=== PATIENT | female | born 1985 | race African-American/Black ===

== ENCOUNTER → 2017-05-27 | Outpatient (CLI) | payer OTHER ==
[~2017-05-27] MED LIST: PRENTAB26 PO
--- NOTE | 2017-05-27 15:30 | MAMMOGRAPHY REPORT ---
UNILATERAL LEFT DIGITAL DIAGNOSTIC MAMMOGRAM TOMOSYNTHESIS WITH CAD AND TARGETED LEFT ULTRASOUND: CLINICAL HISTORY: The patient reports she had an outside ultrasound in 2015 which showed a finding th at was called benign. The patient also reports nonfocal left chest/breast pain for approximately one year which she attributes to anxiety. She denies any palpable left breast lumps. She stopped breas t-feeding in July. TECHNIQUE: Breast tomosynthesis in addition to standard 2D mammography was performed. Current study was also evaluated with a Computer Aided Detection (CAD) system. Left CC and MLO to 2D and tomosynth esis images were obtained. COMPARISON: Prior outside ultrasound from [facility] dated 11/11/2015. The report from the ultrasound e xam reports "dense, lobular tissue at the 12:00 left breast " which was considered benign. BREAST COMPOSITION: There are scattered areas of fibroglandular density in the left breast. FINDINGS: There are no suspicious masses, calcifications, or areas of architectural distortion noted within the left breast mammographically. Targeted ultrasound was performed of the area of the previously seen dense tissue on the prior outsid e ultrasound exam in the left 12:00 breast. Targeted ultrasound of the left 12:00 breast demonstrate s sonographically normal tissue without evidence of a mass or other suspicious sonographic abnormalit y. IMPRESSION: ACR BI-RADS CATEGORY 1: NEGATIVE, TARGETED ULTRASOUND ACR BI-RADS CATEGORY 1: NEGATIVE No suspicious mammographic or sonographically abnormality in the left 12 o'clock breast, in the regio n of the previously seen normal dense tissue on the prior outside ultrasound exam. There is no mammo graphic or targeted sonographic evidence of malignancy. Recommend clinical follow-up for left breast /chest pain, and recommend routine bilateral screening mammograms starting at age 40 unless otherwise clinically indicated. The patient has been verbally notified of the results. Approximately 10% of breast cancers are not detected with mammography. A negative mammographic report should not delay biopsy if a clinically suggestive mass is present. Corazon Summers M.D. /:05/27/2017 11:39:41 Biology Department Chair: Mayra SEGAL)(Laura), [facility] letter sent: Normal 1/2 BI-RADS Code: ACR BI-RADS Category 1: Negative Ultrasound BI-RADS: ACR BI-RADS Category 1: Negative
== END | disposition home or self-care (01) ==
LOC: C.MAMM 10:55
PROVIDERS: ATTEND Family Medicine
DX: R92.8 Other abnormal and inconclusive findings on diagnostic imaging of breast (principal)

== ENCOUNTER → 2017-05-27 | Outpatient (CLI) | payer OTHER ==
--- NOTE | 2017-05-28 16:37 | HOLTER SCAN ---
The patient was monitored for a total of 24 hours. Normal sinus rhythm was seen throughout with a maximum heart rate of 144 beats per minute in a sinus tachycardia, and a minimum heart rate 62 beats per minute in a sinus bradycardia. Average heart rate is 91 beats per minute. There was 1 isolated PVC without ventricular couplets or runs. There were no atrial ectopic beats. There were no runs of a supraventricular tachycardia. There were no pauses or inappropriate bradycardias. There were no diary entries. CONCLUSION: 1. Normal sinus rhythm throughout. 2. Rare PVCs. 3. No atrial ectopy. 4. No diary entries.
== END | disposition home or self-care (01) ==
LOC: C.CPL 13:05
PROVIDERS: ATTEND Family Medicine
DX: R00.2 Palpitations (principal)

== ENCOUNTER → 2017-05-27 | Outpatient (CLI) | payer OTHER ==
[2017-05-27 12:28] LABS: COMPLETE YES; EOS % 0.9 %; HEMATOCRIT 36.9 % (37-47); IG% 0.2 %; LYMPH ABS # 1.48 K/uL (1.2-3.4); MEAN CELL VOLUME 84.1 fL (80-100); MEAN CORPUSCULAR HEMOGLOBIN 27.1 pg (25-34); MEAN CORPUSCULAR HGB CONC 32.2 g/dl (32-36); MEAN PLATELET VOLUME 9.6 fL (7.4-10.4); MONO % 7.6 %; NEUT % 63.3 %; PLATELET COUNT 230 K/uL (130-400); RED BLOOD COUNT 4.39 M/uL (4.2-5.4); WHITE BLOOD COUNT 5.29 K/uL (4.8-10.8)
[2017-05-27 14:27] LABS: BLOOD UREA NITROGEN 11 mg/dl (7-18); CALCIUM 8.6 mg/dl (8.5-10.1); CARBON DIOXIDE 28 mmol/L (21-32); CHLORIDE 103 mmol/L (98-107); CREATININE 0.67 mg/dl (0.60-1.20); GLUCOSE 86 mg/dl (70-99); POTASSIUM 3.5 mmol/L (3.5-5.1); SODIUM 138 mmol/L (136-145)
== END | disposition home or self-care (01) ==
LOC: C.LABPVFM 08:42
PROVIDERS: ATTEND Family Medicine
DX: F41.9 Anxiety disorder, unspecified (principal); R00.2 Palpitations; N63.0 Unspecified lump in unspecified breast

== ENCOUNTER → 2017-10-20 | Outpatient (CLI) | payer OTHER ==
[~2017-10-20] MED LIST changes: +AMOX500T PO; +CLIN150C15 PO; +IBUP-1451 PO; +ONDA4TAB10 SL; +PRED10TA PO; +SACC250C3 PO
== END | disposition home or self-care (01) ==
LOC: C.LABPVFM 17:42
PROVIDERS: ATTEND Nurse Practitioner
DX: J02.9 Acute pharyngitis, unspecified (principal)

== ENCOUNTER 2017-10-21 16:23 | Emergency (ER) | payer OTHER ==
[~2017-10-21] VITALS: Ht 162.6 cm; Wt 63.6 kg
[~2017-10-21 16:23] MED LIST changes: -AMOX500T PO; -CLIN150C15 PO; -IBUP-1451 PO; -ONDA4TAB10 SL; -PRED10TA PO; -SACC250C3 PO
[2017-10-21 16:28] VITALS: TEMP 36.6; Ht 162.6 cm; Wt 63.6 kg
[2017-10-21] MEDS ORDERED: IBUPROFEN 800 MG TAB PO STA (16:49)
--- NOTE | 2017-10-21 16:51 | EMERGENCY ROOM VISIT NOTE ---
History Report prepared by Nini: David Roy Under the Supervision of: Dr. Dk Cardoso M.D. First contact with patient: 16:32 Chief Complaint: ALLERGIC REACTION Stated Complaint: SWOLLEN TONGUE, TINGLING IN RT ARM/HAND, SHAKEY History of Present Illness The patient is a 32 year old female who presents to the Emergency Room with complaints of a constant, swollen tongue beginning this morning. The patient states she developed a sorethroat Wednesday and was evaluated by her PCP yesterday. She reports she was tested for strep, which was negative, and given Augmentin and prednisone. She states her cultures are still pending. The patient notes she did not feel comfortable taking the Augmentin and prednisone for the required dosage, so she did not take the prednisone. She states she took two doses of the Augmentin, one last night and one this morning. The patient reports she called her PCP today and asked to switch her antibiotic because the back of her tongue felt swollen. She notes her PCP said she would prefer the patient be evaluated in the ED to ensure it was not an allergic reaction. The patient states she has mild itching in the back of her throat and pain with swallowing. She reports she is also experiencing nausea, and it feels different than the nausea she has been experiencing with her other symptoms. The patient notes her ear aches and sorethroat have resolved. She denies trouble swallowing, vomiting, rashes, the chance of , and shortness of breath. The patient also denies a history of stomach ulcers. Source of History: patient Onset: this morning Position: tongue Quality: other (swelling) Timing: constant Associated Symptoms: + sorethroat (resolved), + nausea, No SOB, No vomiting , No rash Note: Associated symptoms: resolved ear pain, pain with swallowing, mild itching to the back of the throat Denies: trouble swallowing Review of Systems See HPI for pertinent positives and negatives. A total of ten systems were reviewed and were otherwise negative. Past Medical & Surgical Medical Problems: (1) Blood in urine (2) Dysuria during in second trimester (3) Family History Diabetes mellitus Hypertension Social History Smoking Status: Never Smoker Drug Use: none Marital Status: Housing Status: lives with family Current/Historical Medications Scheduled Amoxicillin & Pot Clavulanate (Augmentin 500MG), 1 TAB PO BID Clindamycin Hcl (Clindamycin Hcl), 450 MG PO QID Multivit/Min/Iron/Fol Ac/Pren ( Vitamin), 1 TAB PO DAILY Ondasetron Odt (Zofran Odt), 4 MG SL Q6H Prednisone (Prednisone), 10 MG PO TID Saccharomyces Boulardii (Florastor), 1 CAP PO BID Scheduled PRN Ibuprofen Tab (Motrin), 800 MG PO Q8H PRN for Pain Allergies Coded Allergies: Peanut (Verified Allergy, Mild, RASH, 10/21/17) SWELLING OF LIPS AND RASH ON LIPS FROM ROASTED PEANUTS Physical Exam Vital Signs Date Time Temp Pulse Resp B/P (MAP) Pulse Ox O2 Delivery O2 Flow Rate FiO2 10/21/17 17:34 79 14 127/79 97 10/21/17 17:22 100 Room Air 10/21/17 17:16 77 14 135/87 100 Room Air 10/21/17 16:28 36.6 89 18 131/91 97 Room Air Physical Exam GENERAL: Awake, alert, well-appearing, in no distress HENT: Normocephalic, atraumatic. Post oropharynx has moderate injection and edema that appears symmetrical. No tongue elevation, stridor, or trismus. EYES: Normal conjunctiva. Sclera non-icteric. NECK: Supple. No nuchal rigidity. FROM. No JVD. No pain with tracheal manipulation. RESPIRATORY: Clear to auscultation. CARDIAC: Regular rate, normal rhythm. Extremities warm and well perfused. Pulses equal. ABDOMEN: Soft, non-distended. No tenderness to palpation. No rebound or guarding. No masses. RECTAL: Deferred. MUSCULOSKELETAL: Chest examination reveals no tenderness. The back is symmetrical on inspection without obvious abnormality. There is no CVA tenderness to palpation. No joint edema. LOWER EXTREMITIES: Calves are equal size bilaterally and non-tender. No edema. No discoloration. NEURO: Normal sensorium. No sensory or motor deficits noted. SKIN: No rash or jaundice noted. Medical Decision & Procedures Medications Administered Medications (Trade) Dose Ordered Sig/Sena Route Start Time Stop Time Status Last Admin Dose Admin Ibuprofen (Motrin Tab) 800 mg NOW STAT PO 10/21/17 16:49 10/21/17 16:51 DC 10/21/17 17:13 800 MG Dexamethasone Sodium Phosphate (Dexamethasone Inj Pf) 10 mg NOW ONCE PO 10/21/17 17:00 10/21/17 17:01 DC 10/21/17 17:11 10 MG ED Course 1633: The patient was evaluated in room A04B. A complete history and physical exam was performed. I discussed results and discharge instructions: she verbalized understanding and agreement. The patient is ready for discharge when she receives her medication. Medical Decision I reviewed the patient's past medical history, medications, and the nursing notes as described above. Differential diagnosis: Etiologies such as viral syndrome, tonsillitis, streptococcal pharyngitis, mononucleosis, peritonsillar abscess, retropharyngeal abscess, otitis, pneumonia , influenza, as well as others were entertained. The patient is a 32-year-old woman who presents to emergency department with concern for tongue swelling in the setting of being treated for a strep pharyngitis on Augmentin per hpi. Of note, the patient was prescribed Augmentin yesterday as well as a prednisone taper, however the patient has not taken the prednisone because she reports that she does not like to take a lot of medications. Today she took her Augmentin and feels like her throat has swelled more and is concerned that this could be an allergic reaction. On arrival the patient is relatively well-appearing in no acute distress, afebrile stable vital signs. On exam the patient has mild injection and edema in the posterior pharynx that is symmetrical. No tongue elevation or trismus. No stridor or pain with tracheal manipulation. Patient does not any evidence to suggest allergic reaction. Lungs are clear to auscultation. Skin is unremarkable. I discussed with the patient that her symptoms are most likely related to her pharyngitis and she would benefit from steroids for their anti- inflammatory effect. Thus, the patient was given dexamethasone as well as ibuprofen with subsequent improvement and was agreeable for outpatient follow- up and will continue Augmentin. Findings and plan for follow-up reviewed with patient. Patient agreeable and d/c'd per discharge instructions. Medication Reconcilliation Current Medication List: was personally reviewed by me Blood Pressure Screening Patient's blood pressure: Normal blood pressure Blood pressure disposition: Did not require urgent referral Impression Primary Impression: Pharyngitis Scribe Attestation The scribe's documentation has been prepared under my direction and personally reviewed by me in its entirety. I confirm that the note above accurately reflects all work, treatment, procedures, and medical decision making performed by me. Departure Information Dispostion Home / Self-Care Prescriptions Ondasetron Odt (ZOFRAN ODT) 4 Mg Tab 4 MG SL Q6H for Nausea, #10 TAB Prov: Dk Cardoso M.D. 10/21/17 Ibuprofen Tab (MOTRIN) 800 Mg Tab 800 MG PO Q8H Y for Pain for 7 Days, #21 TAB Prov: Dk Cardoso M.D. 10/21/17 Referrals Jenise Ibarra M.D. (PCP) Forms HOME CARE DOCUMENTATION FORM, IMPORTANT VISIT INFORMATION Patient Instructions ED Strep Pharyngitis Sourav, My [facility] Additional Instructions Please follow up with your primary care physician in the next 1-3 days for re- evaluation. Your symptoms are likely due your pharyngitis, which may possibly be due to a strep infection. Otherwise, your exam did not show signs of an emergent condition at this time. Continue your Augmentin as prescribed. You were given a dose of steroids today and if your symptoms do not improve in 24 hours you should begin the Prednisone taper as prescribed by your doctor. Acetaminophen or ibuprofen for pain and fevers. Zofran as needed for nausea. Drink plenty of fluids to ensure hydration. Return to the emergency department for worsening symptoms as described in the accompanying instructions.
[2017-10-21] MEDS ORDERED: IBUP-1451 PO (16:53)
[2017-10-21] MEDS ORDERED: ONDA4TAB10 SL (16:53)
[2017-10-21] MEDS ORDERED: DEXAMETHASONE 1 MG TAB PO ONE (17:00)
[2017-10-21] MEDS ORDERED: DEXAMETHASONE **PF** INJ 10 MG/ML VIAL PO ONE (17:00)
[2017-10-21 17:34] VITALS: BP 127/79; PULSE 79; O2SAT 97
[2017-10-21] MEDS ORDERED: AMOX500T PO (22:05)
[2017-10-21] MEDS ORDERED: PRED10TA PO (22:05)
[2017-10-21] MEDS ORDERED: SACC250C3 PO (22:43)
[2017-10-21] MEDS ORDERED: CLIN150C15 PO (22:43)
== END 2017-10-21 17:30 | disposition home or self-care (01) ==
LOC: C.EDB 16:24 → C.EDA 17:30
DX: J02.9 Acute pharyngitis, unspecified (principal); Z79.899 Other long term (current) drug therapy; Z91.010 Allergy to peanuts; Z83.3 Family history of diabetes mellitus; Z82.49 Family history of ischemic heart disease and other diseases of the circulatory system

== ENCOUNTER 2017-10-21 20:50 | Emergency (ER) | payer OTHER ==
[~2017-10-21] VITALS: Ht 162.6 cm; Wt 64.6 kg
[~2017-10-21 20:50] MED LIST changes: +IBUP-1451 PO; +ONDA4TAB10 SL
[2017-10-21 20:56] VITALS: TEMP 36.6; Ht 162.6 cm; Wt 64.6 kg
--- NOTE | 2017-10-21 21:31 | EMERGENCY ROOM VISIT NOTE ---
History Report prepared by Nini: David Roy Under the Supervision of: Dr. Dk Cardoso M.D. First contact with patient: 21:09 Chief Complaint: SHORTNESS OF BREATH Stated Complaint: SOB History of Present Illness The patient is a 32 year old female who presents to the Emergency Room with complaints of resolved, mild, shortness of breath that occurred 1.5 hours ago. The patient states she was in the ED earlier today and was given a steroid for similar symptoms. She reports she had swelling in the back of her mouth that almost resolved with the steroid. The patient notes she developed itchiness and swelling in the back of her throat in addition to her shortness of breath. She states it feels like something is sitting on the back of her tongue. The patient reports it does feel better than when she was driving here. She notes she has a recent history of getting anxious. The patient states she has spoke with a outdoor emergency care technician and it did not seem to help her. She denies itchiness anywhere else and a rash. The patient reports her itchiness is still present from her previous visit, and her tongue swelling has improved with the steroid. Source of History: patient Onset: 1.5 hours ago Symptom Intensity: mild Quality: other (SOB) Timing: resolved Associated Symptoms: No rash Note: Associated symptoms: itchiness in the back of her mouth Review of Systems See HPI for pertinent positives and negatives. A total of ten systems were reviewed and were otherwise negative. Past Medical & Surgical Medical Problems: (1) Blood in urine (2) Dysuria during in second trimester (3) Family History Diabetes mellitus Hypertension Social History Smoking Status: Never Smoker Drug Use: none Marital Status: Housing Status: lives with family Current/Historical Medications Scheduled Amoxicillin & Pot Clavulanate (Augmentin 500MG), 1 TAB PO BID Clindamycin Hcl (Clindamycin Hcl), 450 MG PO QID Multivit/Min/Iron/Fol Ac/Pren ( Vitamin), 1 TAB PO DAILY Ondasetron Odt (Zofran Odt), 4 MG SL Q6H Prednisone (Prednisone), 10 MG PO TID Saccharomyces Boulardii (Florastor), 1 CAP PO BID Scheduled PRN Ibuprofen Tab (Motrin), 800 MG PO Q8H PRN for Pain Allergies Coded Allergies: Peanut (Verified Allergy, Mild, RASH, 10/21/17) SWELLING OF LIPS AND RASH ON LIPS FROM ROASTED PEANUTS Physical Exam Vital Signs Date Time Temp Pulse Resp B/P (MAP) Pulse Ox O2 Delivery O2 Flow Rate FiO2 10/21/17 23:10 69 16 112/73 100 10/21/17 21:38 Room Air 10/21/17 21:20 84 10/21/17 21:20 Room Air 10/21/17 20:56 36.6 95 20 124/85 99 Room Air Physical Exam GENERAL: Awake, alert, well-appearing, in no distress HENT: Normocephalic, atraumatic. Post oropharynx has moderate injection and edema that appears symmetrical. No tongue elevation, stridor, or trismus. EYES: Normal conjunctiva. Sclera non-icteric. NECK: Supple. No nuchal rigidity. FROM. No JVD. RESPIRATORY: Clear to auscultation. CARDIAC: Regular rate, normal rhythm. Extremities warm and well perfused. Pulses equal. ABDOMEN: Soft, non-distended. No tenderness to palpation. No rebound or guarding. No masses. RECTAL: Deferred. MUSCULOSKELETAL: Chest examination reveals no tenderness. The back is symmetrical on inspection without obvious abnormality. There is no CVA tenderness to palpation. No joint edema. LOWER EXTREMITIES: Calves are equal size bilaterally and non-tender. No edema. No discoloration. NEURO: Normal sensorium. No sensory or motor deficits noted. SKIN: No rash or jaundice noted. Medical Decision & Procedures Medications Administered Medications (Trade) Dose Ordered Sig/Sena Route Start Time Stop Time Status Last Admin Dose Admin Clindamycin HCl (Cleocin Cap) 450 mg ONE STAT PO 10/21/17 21:33 10/21/17 21:38 DC 10/21/17 21:55 450 MG Acetaminophen (Tylenol Tab) 1,000 mg NOW STAT PO 10/21/17 21:33 10/21/17 21:38 DC 10/21/17 21:56 1,000 MG Dexamethasone Sodium Phosphate (Dexamethasone Inj Pf) 10 mg NOW ONCE PO 10/21/17 21:45 10/21/17 21:46 DC 10/21/17 21:56 10 MG Clindamycin HCl (Cleocin Cap) 450 mg ONE STAT PO 10/21/17 22:44 10/21/17 22:48 DC 10/21/17 23:09 450 MG ED Course 2122: The patient was evaluated in room C08. A complete history and physical exam was performed. 2138: I reevaluated the patient. She is feeling better. 2253: I reevaluated the patient. Discussed results and discharge instructions: she verbalized understanding and agreement. The patient is ready for discharge. Medical Decision I reviewed the patient's past medical history, medications, and the nursing notes as described above. Differential diagnosis: Etiologies such as viral syndrome, tonsillitis, streptococcal pharyngitis, mononucleosis, peritonsillar abscess, retropharyngeal abscess, otitis, pneumonia , influenza, as well as others were entertained. The patient is a 32-year-old woman who presents to emergency department for the second time today with concern for tongue swelling in the setting of being treated for a strep pharyngitis on Augmentin per hpi. When seen earlier it was determined that the patient's symptoms were most likely related to her pharyngitis, the setting of not taking her prescribed steroid. Of note, the patient reports that she felt much improved after her initial visit earlier today after receiving dexamethasone and ibuprofen. However, reports that when she took her evening dose of Augmentin she felt like her tongue swelling returned and briefly felt short of breath with difficulty swallowing. However, she reports by the time she arrived here that this has entirely resolved without any new intervention. Of note the patient does report that she has recently had an increase in underlying anxiety and admits that this may be contributing to her interpretation of symptoms today. On arrival the patient is well-appearing in no acute distress, afebrile stable vital signs. I saw the patient earlier today and her exam is unchanged with mild injection and edema in the posterior pharynx that is symmetrical. No tongue elevation or trismus. No stridor or pain with tracheal manipulation. Thus, unlikely to be [employer] or RPA at this time. There continues to be no evidence on exam to suggest allergic reaction. Lungs are clear to auscultation. Skin is unremarkable. I again discussed with the patient that her symptoms are most likely related to her pharyngitis. However she requested that we change her antibiotic. I agreed we will do this however I explained that I am reluctant to definitively say that the patient has an allergy to amoxicillin at this time, given I believe her symptoms are again related to her pharyngitis. Given the patient's report of a recurrence of her earlier symptoms, will treat with second dose of dexamethasone particularly given that the patient is unlikely to begin her prescribed prednisone taper tomorrow and this will give her additional anti- inflammatory effect as her antibiotics continue to work. Thus, the patient was given dexamethasone and clindamycin continued improvement during her ED observation. She was agreeable with plan to continue with outpatient follow-up. Findings and plan for follow-up reviewed with patient. Patient agreeable and d/c 'd per discharge instructions. Medication Reconcilliation Current Medication List: was personally reviewed by me Blood Pressure Screening Patient's blood pressure: Normal blood pressure Blood pressure disposition: Did not require urgent referral Impression Primary Impression: Pharyngitis Scribe Attestation The scribe's documentation has been prepared under my direction and personally reviewed by me in its entirety. I confirm that the note above accurately reflects all work, treatment, procedures, and medical decision making performed by me. Departure Information Dispostion Home / Self-Care Prescriptions Saccharomyces Boulardii (Florastor) 250 Mg Cap 1 CAP PO BID for 10 Days, #20 CAP Prov: Dk Cardoso M.D. 10/21/17 Clindamycin Hcl (CLINDAMYCIN HCL) 150 Mg Cap 450 MG PO QID for 10 Days, #120 CAP Prov: Dk Cardoso M.D. 10/21/17 Referrals Jenise Ibarra M.D. (PCP) Forms HOME CARE DOCUMENTATION FORM, IMPORTANT VISIT INFORMATION Patient Instructions ED Strep Pharyngitis Sourav, My [facility] [address] Additional Instructions Please follow up with your primary care physician in the next 1-3 days for re- evaluation. Your symptoms are likely due your pharyngitis, which may possibly be due to a strep infection. Otherwise, your exam did not show signs of an emergent condition at this time. Discontinue her current antibiotic and begin clindamycin as prescribed. You were given a second dose of steroids today and if your symptoms do not improve in 24 hours you should begin the Prednisone taper as prescribed by your doctor. Acetaminophen or ibuprofen for pain and fevers. Zofran as needed for nausea. Drink plenty of fluids to ensure hydration. Return to the emergency department for worsening symptoms as described in the accompanying instructions.
[2017-10-21] MEDS ORDERED: ACETAMINOPHEN 500 MG TAB PO STA (21:33)
[2017-10-21] MEDS ORDERED: CLINDAMYCIN HCL 150 MG CAP PO STA ×2 (21:33→22:44)
[2017-10-21] MEDS ORDERED: DEXAMETHASONE **PF** INJ 10 MG/ML VIAL PO ONE (21:45)
[2017-10-21] MEDS ORDERED: PRED10TA PO (22:05)
[2017-10-21] MEDS ORDERED: AMOX500T PO (22:05)
[2017-10-21] MEDS ORDERED: SACC250C3 PO (22:43)
[2017-10-21] MEDS ORDERED: CLIN150C15 PO (22:43)
[2017-10-21] MEDS ORDERED: EMPTY 8 DRAM VIAL ONE (23:03)
[2017-10-21 23:10] VITALS: BP 112/73; PULSE 69; O2SAT 100
== END 2017-10-21 23:08 | disposition home or self-care (01) ==
LOC: C.EDB 20:50 → C.EDC 23:08
DX: J02.9 Acute pharyngitis, unspecified (principal); Z91.010 Allergy to peanuts

== ENCOUNTER → 2018-01-26 | Outpatient (CLI) | payer OTHER ==
[~2018-01-26] MED LIST changes: +AMOX500T PO; +CLIN150C15 PO; -IBUP-1451 PO; +PRED10TA PO
--- NOTE | 2018-01-26 14:06 | DIAGNOSTIC IMAGING REPORT ---
KUB HISTORY: Acute constipation with bloody stool and acute generalized abdominal pain K59.00 [id number] COMPARISON: None. FINDINGS: The bowel gas pattern is non-obstructive. Moderate volume of formed colonic stool throughout the colon extends from the cecum through the descending colon. No significant stool volume of the sigmoid or rectum. There is no organomegaly. No renal calculi. No ureteral calculi. No pneumoperitoneum or pneumatosis. No fracture. IMPRESSION: 1. Nonobstructive bowel gas pattern. 2. Suggested constipation. Electronically signed by: Scooter Stoner M.D. 01/26/2018 2:04 PM Dictated Date/Time: 01/26/2018 2:03 PM
== END | disposition home or self-care (01) ==
LOC: C.RAD1850 13:43
PROVIDERS: ATTEND Physician Assistant
DX: K59.00 Constipation, unspecified (principal)

== ENCOUNTER → 2018-03-02 | Outpatient (CLI) | payer OTHER ==
[~2018-03-02] MED LIST changes: +ONDA4TAB46 PO; +SULF800T23 PO
[2018-03-02 12:17] LABS: BASO % 0.2 %; BASO ABS # 0.01 K/uL (0-0.2); EOS % 0.6 %; EOS ABS # 0.03 K/uL (0-0.5); HEMATOCRIT 38.1 % (37-47); HEMOGLOBIN 12.3 g/dL (12.0-16.0); LYMPH % 35.8 %; LYMPH ABS # 1.74 K/uL (1.2-3.4); MEAN CELL VOLUME 83.7 fL (80-100); MEAN CORPUSCULAR HGB CONC 32.3 g/dl (32-36); MEAN PLATELET VOLUME 9.4 fL (7.4-10.4); MONO % 6.4 %; MONO ABS # 0.31 K/uL (0.11-0.59); NEUT ABS # 2.77 K/uL (1.4-6.5); PLATELET COUNT 224 K/uL (130-400); RED CELL DISTRIBUTION WIDTH CV 13.2 % (11.5-14.5); RED CELL DISTRIBUTION WIDTH SD 39.5 fL (36.4-46.3); WHITE BLOOD COUNT 4.86 K/uL (4.8-10.8)
== END | disposition home or self-care (01) ==
LOC: C.LAB1850 09:38
PROVIDERS: ATTEND Nurse Practitioner Adult Health
DX: R30.0 Dysuria (principal); D64.9 Anemia, unspecified; F41.9 Anxiety disorder, unspecified; J02.9 Acute pharyngitis, unspecified; J03.00 Acute streptococcal tonsillitis, unspecified

== ENCOUNTER → 2018-03-05 | Outpatient (CLI) | payer OTHER | END | disposition home or self-care (01) | LOC: C.LAB1850 09:00 | PROVIDERS: ATTEND Nurse Practitioner Adult Health | DX: R30.0 Dysuria (principal); R31.29 Other microscopic hematuria ==

== ENCOUNTER 2018-03-06 20:16 | Emergency (ER) | payer OTHER ==
[~2018-03-06] VITALS: Ht 162.6 cm; Wt 60.3 kg
[~2018-03-06 20:16] MED LIST changes: -ONDA4TAB46 PO; -SULF800T23 PO
[2018-03-06 20:19] VITALS: TEMP 36.9; Ht 162.6 cm; Wt 60.3 kg
[2018-03-06] MEDS ORDERED: SODIUM CHLORIDE 0.9% 1000ML 1,000 ML IV STA (20:42)
[2018-03-06 21:14] LABS: BASO % 0.1 %; BASO ABS # 0.01 K/uL (0-0.2); EOS % 0.7 %; EOS ABS # 0.05 K/uL (0-0.5); HEMATOCRIT 36.5 % (37-47); HEMOGLOBIN 12.2 g/dL (12.0-16.0); IG# 0.02 K/uL (0.00-0.02); LYMPH % 8.9 %; LYMPH ABS # 0.64 K/uL (1.2-3.4); MEAN CELL VOLUME 81.3 fL (80-100); MEAN CORPUSCULAR HEMOGLOBIN 27.2 pg (25-34); MEAN CORPUSCULAR HGB CONC 33.4 g/dl (32-36); MEAN PLATELET VOLUME 9.5 fL (7.4-10.4); MONO % 4.9 %; MONO ABS # 0.35 K/uL (0.11-0.59); NEUT % 85.1 %; NEUT ABS # 6.12 K/uL (1.4-6.5); PLATELET COUNT 219 K/uL (130-400); RED CELL DISTRIBUTION WIDTH CV 12.6 % (11.5-14.5); WHITE BLOOD COUNT 7.19 K/uL (4.8-10.8)
--- NOTE | 2018-03-06 21:18 | EMERGENCY ROOM VISIT NOTE ---
History Report prepared by Nnii: Tuyet Reese Under the Supervision of: Dr. Da Galarza M.D. First contact with patient: 20:29 Chief Complaint: NAUSEA Stated Complaint: NAUSEA History of Present Illness The patient is a 32 year old female who presents to the Emergency Room with complaints of worsening nausea starting this morning. The patient states that she was diagnosed by [facility] 4 days ago with a UTI and started on Bactrim. She states that she has been fine with the antibiotic and felt fine after taking it last night,. She states that this morning she started becoming nauseous and believes that it is due to not eating enough food with the antibiotic. She reports that since then it has gotten worse. The patient reports that she called her PCP who called in a prescription of Zofran. She notes that she took one, but it didn't seem to help much. She states that she has not eaten or drank much all day so she is concerned about taking another round of the Bactrim tonight. The patient complains of diarrhea and vomiting 3 times. She notes that she feels slightly better than before she came in. She notes that she has some vaginal discharge, but presumed that it was from the UTI. The patient denies hematemesis, dark black vomit, hematochezia, hematuria, melena, vaginal bleeding, concern for STDs, and the chance of . She notes that her only abdominal surgery was a . Source of History: patient Onset: this morning Position: abdomen Quality: other (nausea) Timing: worsening Modifying Factors (Relieving): anti-emetics (Zofran) Associated Symptoms: + vomiting, + diarrhea, No melena, No hematochezia, No urinary symptoms Note: The patient complains of vaginal discharge. The patient denies hematemesis, dark black vomit, vaginal bleeding, concern of STDs, and the chance of . Review of Systems See HPI for pertinent positives and negatives. A total of ten systems were reviewed and were otherwise negative. Past Medical & Surgical Medical Problems: (1) Blood in urine (2) Dysuria during in second trimester (3) Surgical Problems: (1) Hx of section Family History Diabetes mellitus Hypertension Social History Smoking Status: Never Smoker Drug Use: none Marital Status: Housing Status: lives with family Current/Historical Medications Scheduled Multivit/Min/Iron/Fol Ac/Pren ( Vitamin), 1 TAB PO DAILY Sulfa/Trimethoprim (Bactrim Ds 800MG/160MG), 1 TAB PO BID Scheduled PRN Ondansetron Hcl (Zofran), 4 MG PO EVERY 8 HOURS PRN for Nausea Allergies Coded Allergies: Amoxicillin (Unverified Allergy, Intermediate, "TONGUE SWELLS", 03/06/18) Clavulanic Acid (Unverified Allergy, Intermediate, "TONGUE SWELLS", ) Peanut (Verified Allergy, Mild, RASH, 03/06/18) SWELLING OF LIPS AND RASH ON LIPS FROM ROASTED PEANUTS Physical Exam Vital Signs Date Time Temp Pulse Resp B/P (MAP) Pulse Ox O2 Delivery O2 Flow Rate FiO2 03/06/18 22:19 70 18 105/75 99 Room Air 03/06/18 20:19 36.9 83 18 103/70 99 Room Air Physical Exam Physical Exam GENERAL: She is oriented to person, place, and time. She appears well- developed and well-nourished. She does not appear distressed. HENT: Exam performed. Head: Normocephalic and atraumatic. Right Ear: External ear normal. No mastoid tenderness. Left Ear: External ear normal. No mastoid tenderness. Mouth/Throat: The oropharynx is clear and moist. No trismus in the jaw. No dental abscesses or uvula swelling. No oropharyngeal exudate or tonsillar abscesses. EYES: Conjunctivae and EOM are normal. Pupils are equal, round, and reactive to light. Right eye exhibits no discharge. Left eye exhibits no discharge. No scleral icterus. NECK: Normal range of motion. Neck supple. No JVD present. No spinous process tenderness present. No carotid bruit present. No rigidity. No tracheal deviation and normal range of motion present. No Brudzinski's sign and no Kernig 's sign noted. CV: Normal rate, regular rhythm, normal heart sounds and intact distal pulses. There is no peripheral edema. Palpable radial pulses bue. PULM/CHEST: Effort normal and breath sounds normal. No respiratory distress. No stridor. She has no wheezes. She has no rales. Chest Wall: She exhibits no tenderness. ABD: The abdomen is soft. Bowel sounds are normal. She has no distension. No mass is present. There is pain on palpation of the suprapubic region. There is no rebound, no guarding, no Mills's sign and no tenderness at McBurney's point. Rovsig negative MUSC/SKEL: Normal range of motion. There is no peripheral edema, tenderness or deformity. LYMPH: No cervical adenopathy. NEURO: She is alert and oriented to person, place, and time. She has normal strength. No cranial nerve deficit or sensory deficit. Coordination and gait normal. GCS eye subscore is 4. GCS verbal subscore is 5. GCS motor subscore is 6. Cerebellar tests wnl. SKIN: Skin is warm and dry. She is not diaphoretic. PSYCH: She has a normal mood and affect. Behavior is normal. Judgment and thought content normal. Medical Decision & Procedures Laboratory Results 03/06/18 21:05 Red Blood Count 4.49, Mean Corpuscular Volume 81.3, Mean Corpuscular Hemoglobin 27.2, Mean Corpuscular Hemoglobin Concent 33.4, Mean Platelet Volume 9.5, Neutrophils (%) (Auto) 85.1, Lymphocytes (%) (Auto) 8.9, Monocytes (%) (Auto) 4.9, Eosinophils (%) (Auto) 0.7, Basophils (%) (Auto) 0.1, Neutrophils # (Auto) 6.12, Lymphocytes # (Auto) 0.64, Monocytes # (Auto) 0.35, Eosinophils # (Auto) 0.05, Basophils # (Auto) 0.01 03/06/18 21:05 Test 03/06/18 20:54 03/06/18 21:05 Urine Color YELLOW Urine Appearance CLEAR (CLEAR) Urine pH 7.0 (4.5-7.5) Urine Specific [place] 1.001 (1.000-1.030) Urine Protein NEG (NEG) Urine Glucose (UA) NEG (NEG) Urine Ketones NEG (NEG) Urine Occult Blood NEG (NEG) Urine Nitrite NEG (NEG) Urine Bilirubin NEG (NEG) Urine Urobilinogen NEG (NEG) Urine Leukocyte Esterase TRACE (NEG) Urine WBC (Auto) /hpf (0-5) Urine RBC (Auto) /hpf (0-4) Urine Hyaline Casts (Auto) /lpf (0-5) Urine Epithelial Cells (Auto) /lpf (0-5) Urine Bacteria (Auto) (NEG) Urine RBC 0-4 /hpf (0-4) Urine WBC 5-10 /hpf (0-5) Urine Epithelial Cells 5-10 /lpf (0-5) Urine Bacteria NEG (NEG) Urine Test NEG (NEG) White Blood Count 7.19 K/uL (4.8-10.8) Red Blood Count 4.49 M/uL (4.2-5.4) Hemoglobin 12.2 g/dL (12.0-16.0) Hematocrit 36.5 % (37-47) Mean Corpuscular Volume 81.3 fL (80-100) Mean Corpuscular Hemoglobin 27.2 pg (25-34) Mean Corpuscular Hemoglobin Concent 33.4 g/dl (32-36) Platelet Count 219 K/uL (130-400) Mean Platelet Volume 9.5 fL (7.4-10.4) Neutrophils (%) (Auto) 85.1 % Lymphocytes (%) (Auto) 8.9 % Monocytes (%) (Auto) 4.9 % Eosinophils (%) (Auto) 0.7 % Basophils (%) (Auto) 0.1 % Neutrophils # (Auto) 6.12 K/uL (1.4-6.5) Lymphocytes # (Auto) 0.64 K/uL (1.2-3.4) Monocytes # (Auto) 0.35 K/uL (0.11-0.59) Eosinophils # (Auto) 0.05 K/uL (0-0.5) Basophils # (Auto) 0.01 K/uL (0-0.2) RDW Standard Deviation 38.0 fL (36.4-46.3) RDW Coefficient of Variation 12.6 % (11.5-14.5) Immature Granulocyte % (Auto) 0.3 % Immature Granulocyte # (Auto) 0.02 K/uL (0.00-0.02) Anion Gap 9.0 mmol/L (3-11) Est Creatinine Clear Calc Drug Dose 78.3 ml/min Estimated GFR () 98.7 Estimated GFR (Non- 85.2 BUN/Creatinine Ratio 4.9 (10-20) Lactic Acid Level 0.8 mmol/L (0.4-2.0) Calcium Level 9.1 mg/dl (8.5-10.1) Laboratory results reviewed by Medications Administered Medications (Trade) Dose Ordered Sig/Sena Route Start Time Stop Time Status Last Admin Dose Admin Sodium Chloride 1,000 ml @ 999 mls/hr Q1H1M STAT IV 03/06/18 20:42 03/06/18 21:42 DC 03/06/18 21:03 999 MLS/HR ED Course 2037: The patient was evaluated in room C7. A complete history and physical exam was performed. 2041: Ordered NSS 1000 ml @ 999 mls/hr IV. 2152: I reevaluated the patient and her vitals were stable. Repeat abdominal exam shows no pain on palpation of the abdomen. Labs within normal limits. She will be discharged and follow up with her PCP. I instructed her to continue taking her Bactrim as instructed. The patient states that she had had Bactrim in the past and has not ever had an adverse reaction in the past. She states that she believes this adverse reaction is from taking it on an empty stomach.DISCHARGE - Plan of care discussed with patient and questions answered. The patient was given both verbal and printed discharge instructions. The patient verbalized understanding and ability to comply. The patient is to seek outpatient follow up as noted in the discharge instructions. The patient verbalized understanding and ability to comply. The patient is discharged in stable condition. The patient was instructed to return for worsening symptoms. Medical Decision Repeat abdominal exam shows no pain on palpation of the abdomen. Labs within normal limits. She will be discharged and follow up with her PCP. I instructed her to continue taking her Bactrim as instructed. The patient states that she had had Bactrim in the past and has not ever had an adverse reaction in the past. She states that she believes this adverse reaction is from taking it on an empty stomach.DISCHARGE - Plan of care discussed with patient and questions answered. The patient was given both verbal and printed discharge instructions. The patient verbalized understanding and ability to comply. The patient is to seek outpatient follow up as noted in the discharge instructions. The patient verbalized understanding and ability to comply. The patient is discharged in stable condition. The patient was instructed to return for worsening symptoms. Medication Reconcilliation Current Medication List: was personally reviewed by me Blood Pressure Screening Patient's blood pressure: Normal blood pressure Blood pressure disposition: Did not require urgent referral Impression Primary Impression: Nausea & vomiting Additional Impression: UTI (urinary tract infection) Scribe Attestation The scribe's documentation has been prepared under my direction and personally reviewed by me in its entirety. I confirm that the note above accurately reflects all work, treatment, procedures, and medical decision making performed by me. Departure Information Dispostion Home / Self-Care Referrals Lucy Rivera CRNP (PCP) Forms HOME CARE DOCUMENTATION FORM, IMPORTANT VISIT INFORMATION Patient Instructions My [facility] Additional Instructions Follow-up in 1 7 days with your PCP. Return to emergency department for develop fever greater 100.4, worsening abdominal pain, vaginal bleeding, blood in your vomit, blood in your stools. Problem Qualifiers Primary Impression: Nausea & vomiting Vomiting type: unspecified Vomiting Intractability: unspecified Qualified Codes: R11.2 - Nausea with vomiting, unspecified Additional Impression: UTI (urinary tract infection) Urinary tract infection type: acute cystitis Hematuria presence: without hematuria Qualified Codes: N30.00 - Acute cystitis without hematuria
[2018-03-06 21:31] LABS: CALCIUM 9.1 mg/dl (8.5-10.1); CREATININE 0.9 mg/dl (0.60-1.20); POTASSIUM 3.6 mmol/L (3.5-5.1)
[2018-03-06] MEDS ORDERED: SULF800T23 PO (21:32)
[2018-03-06] MEDS ORDERED: ONDA4TAB46 PO (21:33)
[2018-03-06 22:19] VITALS: BP 105/75; PULSE 70; O2SAT 99
== END 2018-03-06 22:21 | disposition home or self-care (01) ==
LOC: C.EDB 20:17 → C.EDC 22:21
DX: R11.2 Nausea with vomiting, unspecified (principal); N30.00 Acute cystitis without hematuria; Z88.1 Allergy status to other antibiotic agents; Z88.8 Allergy status to other drugs, medicaments and biological substances; Z91.010 Allergy to peanuts

== ENCOUNTER 2019-01-04 12:24 | Inpatient (IN) ==
[2019-01-04] MEDS ORDERED: LACTATED RINGER'S 1,000 ML IV PRN (12:34)
[2019-01-04] MEDS ORDERED: OXYTOCIN 30 UNITS/500 ML BAG IV PRN ×2 (12:34→13:18)
[2019-01-04 12:58] LABS: Hematocrit (blood only) 42.3 % (37-47); Hemoglobin 14.3 g/dL (12.0-16.0); Mean Corpuscular Volume 81.3 fL (80-100); Mean Platelet Volume 9.7 fL (7.4-10.4); Platelet Count 164 K/uL (130-400); White Blood Count 12.11 K/uL (4.8-10.8)
[2019-01-04] MEDS ORDERED: LIDOCAINE/EPINEPHRINE 1% 20 ML VIAL ONE (12:58)
[2019-01-04 13:00] LABS: Mean Corpuscular Hgb Conc 33.8 g/dL (32-36)
[2019-01-04] MEDS ORDERED: METHYLERGONOVINE MALEATE 0.2 MG/ML AMP ONE (13:08)
[2019-01-04] MEDS ORDERED: BISACODYL 10 MG SUPP PR PRN (13:18)
[2019-01-04] MEDS ORDERED: IBUPROFEN 600 MG TAB PO PRN (13:18)
[2019-01-04] MEDS ORDERED: HYDROCORTISONE ACETATE 25 MG SUPP PR PRN (13:18)
[2019-01-04] MEDS ORDERED: ACETAMINOPHEN W/CODEINE #3 1 TAB PO PRN (13:18)
[2019-01-04] MEDS ORDERED: SUPERCREAM 0.870% 15 GM JAR EXT PRN (13:18)
[2019-01-04] MEDS ORDERED: BENZOCAINE 20% AER SPR 82.5 GM CAN EXT PRN (13:18)
[2019-01-04] MEDS ORDERED: OXYCODONE/ACETAMINOPHEN 5mg/325mg TAB PO PRN (13:18)
[2019-01-04] MEDS ORDERED: DIPHTHERIA/TETANUS/PERTUSSIS 0.5 ML SYR/VIAL IM ONE (13:18)
[2019-01-04] MEDS ORDERED: METHYLERGONOVINE MALEATE 0.2 MG/ML AMP IM ONE (13:18)
[2019-01-04] MEDS: ACETAMINOPHEN 325 MG TAB PO PRN ×2 (16:28→23:31)
[2019-01-04] MEDS: DOCUSATE SODIUM 100 MG CAP PO SCH (20:44)
--- NOTE | 2019-01-05 00:47 | Delivery Summary ---
DATE OF OPERATION: 01/04/2019 DELIVERY NOTE Mrs. Stepehnson is a 5, para 3, 1 spontaneous AB. She had first time and then has had 2 previous successful VBACs. Estimated due date 01/09/2019, blood type is B positive. I got a call from [employer] [facility]now [employer] office saying that patient had a nonreactive NST and a low biophysical profile, sent her over to [facility]. Once she arrived on maternity, she was 5 cm dilated, membranes had ruptured spontaneously and there was thick meconium. Came in immediately to the hospital. By the time I got here, she was . crowned, they suctioned the mouth and the nose thoroughly, then delivered the shoulders without difficulty, clamped the cord, cut it, and then handed the off to the nurses for suctioning and resuscitation. Cord blood was taken. With IV Pitocin running, the placenta was removed intact. It had meconium staining on the cord and the membranes. Inspection of the perineum revealed a first-degree laceration. The area was infiltrated local with epinephrine. Then I used 2-0 Vicryl to approximate the vaginal mucosa out and to beyond the hymenal ring, a deep suture of 2-0 Vicryl to approximate the bulbocavernosus muscle, separate deep suture to approximate the perineal body, and a running subcuticular suture of 2-0 Vicryl to approximate the perineal skin edges. Following this, I expelled all the clots from the uterus. Uterus was well contracted. I did give IM Methergine 0.2 mg, did a vag exam including rectovaginal examination. There were no stitches through the rectum, no sponges in the vagina. [facility]
[2019-01-05 06:40] LABS: Hematocrit (blood only) 38.7 % (37-47); Hemoglobin 13.2 g/dL (12.0-16.0); Mean Corpuscular Hgb Conc 34.1 g/dL (32-36); Mean Corpuscular Volume 82.2 fL (80-100); Mean Platelet Volume 9.9 fL (7.4-10.4); Platelet Count 172 K/uL (130-400); RDW Coefficient of Variation 17.2 % (11.5-14.5); RDW Standard Deviation 51.7 fL (36.4-46.3); Red Blood Count 4.71 M/uL (4.2-5.4); White Blood Count 11.68 K/uL (4.8-10.8)
[2019-01-05] MEDS ORDERED: PRENATAL VITAMIN 1 TAB ONE (07:40)
[2019-01-05] MEDS: PRENATAL VITAMIN 1 TAB PO SCH (07:59)
[2019-01-05] MEDS: DOCUSATE SODIUM 100 MG CAP PO SCH ×2 (07:59→21:10)
[2019-01-05] MEDS: ACETAMINOPHEN 325 MG TAB PO PRN ×3 (08:00→21:10)
--- NOTE | 2019-01-05 09:37 | Obstetrical Progress Note ---
Date of Service January 05, 2019 Assessment & Plan (1) normal course: PPD #1 pt doing well anticipate dich tomorrow Subjective Ambulation: ambulating normally Voiding: no voiding problems Passing Gas:: Yes Diet Tolerance:: regular diet Lochia:: Small Feeding Type:: breast feeding Review of Systems All systems reviewed & are unremarkable except as noted in HPI & below Physical Exam Constitutional WD/WN, vitals as above well developed and well nourished Eyes PERRL, conjunctivae normal, anicteric sclerae Neck trachea midline, no thyromegaly Respiratory normal respiratory effort, lungs clear to auscultation Auscultation: no crackles, no rales and no wheezes Cardiovascular RRR, no murmur, no edema Gastrointestinal (Abdomen) normal bowel sounds, soft, nontender, no hepatosplenomegaly Uterus is below umbilicus Musculoskeletal no cyanosis or clubbing, extremities motor strength 5/5 Skin no rashes, warm and dry Neurologic patellar DTR's 2+ bilat, sensation intact Psychiatric A+Ox3, euthymic affect Genitourinary normal external appearance Results & Data Vital Signs (Past 12 Hours) Vital Signs Temp Pulse Resp BP Pulse Ox 01/05/19 08:00 36.6 C 85 18 108/72 100 01/05/19 03:05 36.4 C L 80 16 117/70 100 01/04/19 23:20 36.9 C 84 16 104/64 97
[2019-01-05] MEDS ORDERED: BISACODYL 5 MG TABEC PO SCH (20:00)
[2019-01-06 06:30] LABS: Hematocrit (blood only) 35.8 % (37-47); Hemoglobin 11.9 g/dL (12.0-16.0)
[2019-01-06] MEDS: PRENATAL VITAMIN 1 TAB PO SCH (08:15)
[2019-01-06] MEDS: DOCUSATE SODIUM 100 MG CAP PO SCH ×2 (08:15→20:30)
[2019-01-06] MEDS: ACETAMINOPHEN 325 MG TAB PO PRN ×2 (08:40→17:35)
--- NOTE | 2019-01-06 11:57 | Obstetrical Progress Note ---
Date of Service January 06, 2019 Subjective doing well ambulating well tolerating diet plans for going home today Physical Exam Constitutional: WD/WN, vitals as above comfortable abdomen soft and non- tender fundus is firm no mckay neg Ricarda's plan for discharge Results & Data Vital Signs (Past 12 Hours) Vital Signs Temp Pulse Resp BP Pulse Ox 01/06/19 08:00 37.2 C 91 H 20 102/74 100 Laboratory Results Laboratory Results - last 48 hr 01/04/19 01/04/19 01/05/19 12:48 12:48 06:15 WBC 12.11 H 11.68 H RBC 5.20 4.71 Hgb 14.3 13.2 Hct 42.3 38.7 MCV 81.3 82.2 MCH 27.5 28.0 MCHC 33.8 34.1 RDW Std Deviation 51.0 H 51.7 H RDW Coeff of Neisha 17.0 H 17.2 H Plt Count 164 172 MPV 9.7 9.9 Blood Type B Positive Antibody Screen NEGATIVE 01/06/19 06:17 WBC RBC Hgb 11.9 L Hct 35.8 L MCV MCH MCHC RDW Std Deviation RDW Coeff of Neisha Plt Count MPV Blood Type Antibody Screen
== END 2019-01-06 23:17 | disposition home or self-care (01) | DRG 807 ==
LOC: 4S1 12:24 → 4S2 16:15